=== PATIENT | female | born 1925 | race Caucasian/White ===

== ENCOUNTER 2016-09-22 21:07 | Inpatient (IN) | payer MEDICARE, BC ==
[~2016-09-22] VITALS: Ht 167.6 cm; Wt 72.6 kg
[~2016-09-22 21:07] MED LIST: CATAPRES0.1 MG PO; RESTORIL15 MG PO; SYNTHROID100 MCG PO; SYSTANE 0.3-0.4%5 ML EACH EYE; TYLENOL W/CODEI1 TAB PO; UNITHROID112 MCG; UNITHROID112 MCG PO; XALATAN 0.0052.5 ML EACH EYE; XARELTO15 MG PO; ZIAC 2.5/6.25 M1 TAB; ZIAC 2.5/6.25 M1 TAB PO
[2016-09-22 22:23] LABS: BASOPHILS 0.1 % (0-2); EOSINOPHILS 0.4 % (0-7); HEMATOCRIT 42.6 % (36.0-48.0); HEMOGLOBIN 13.8 g/dL (12-16); IMMATURE GRANULOCYTES 0.9 % (0-5); LYMPHOCYTES 11.7 % (15-50); MCH 29.6 pg (26.0-34.0); MCHC 32.4 g/dL (31.0-37.0); MCV 91.4 fL (80.0-100.0); MEAN PLATELET VOLUME 12.6 fL (7.4-10.4); MONOCYTES 16.5 % (2-11); NEUTROPHILS 70.4 % (40-80); RBC 4.66 10x6/uL (4.00-5.40); RDW 13.9 % (11.5-14.5); WBC 10.4 10x3/uL (4.8-10.8)
[2016-09-22 22:24] LABS: PLATELET COUNT 123 10x3/uL (130-400)
[2016-09-22 22:29] LABS: ALBUMIN 3.2 g/dL (3.4-5.0); ANION GAP 11.8 mmol/L (8-16); BILIRUBIN - TOTAL 0.52 mg/dL (0.2-1.3); CALCIUM 9.1 mg/dL (8.5-10.1); CARBON DIOXIDE 27.1 mmol/L (21.0-32.0); CREATININE - SERUM 2.1 mg/dL (0.6-1.3); POTASSIUM - SERUM 3.9 mmol/L (3.5-5.1); PROTEIN - SERUM 7.3 g/dL (6.4-8.2)
[2016-09-22 22:44] LABS: APPEARANCE CLOUDY (CLEAR); BACTERIA MANY /hpf (NONE SEEN); BILIRUBIN NEGATIVE (NEGATIVE); COLOR YELLOW (YELLOW); GLUCOSE NEGATIVE (NEGATIVE); KETONE NEGATIVE (NEGATIVE); LEUKOCYTE ESTERASE 2+ (NEGATIVE); MUCUS >1+ /lpf (NONE SEEN); NITRITE NEGATIVE (NEGATIVE); PROTEIN 1+ mg/dL (NEGATIVE); SPECIFIC GRAVITY 1.015 (1.005-1.020); UROBILINOGEN NORMAL (NORMAL); WHITE CELLS - URINE 25-50 /hpf (0-5)
[2016-09-22 22:45] LABS: AMORPHOUS SEDIMENT >1+ /lpf (NONE SEEN)
[2016-09-22 23:34] LABS: APTT 26.7 SECONDS (22.8-39.4); INR 1.03 (0.85-1.17); PROTIME 13.4 SECONDS (11.6-15.0)
[2016-09-23 03:48] VITALS: BP 164/66; BMI 25.8
[2016-09-23 09:28] VITALS: BP 128/59
[2016-09-23 11:02] LABS: BASOPHILS 0.1 % (0-2); EOSINOPHILS 1.3 % (0-7); HEMATOCRIT 41.7 % (36.0-48.0); HEMOGLOBIN 13.4 g/dL (12-16); IMMATURE GRANULOCYTES 0.8 % (0-5); LYMPHOCYTES 20.8 % (15-50); MCH 29.5 pg (26.0-34.0); MCHC 32.1 g/dL (31.0-37.0); MCV 91.9 fL (80.0-100.0); MEAN PLATELET VOLUME 12.4 fL (7.4-10.4); MONOCYTES 16.5 % (2-11); NEUTROPHILS 60.5 % (40-80); PLATELET COUNT 126 10x3/uL (130-400); RBC 4.54 10x6/uL (4.00-5.40); RDW 13.9 % (11.5-14.5); WBC 7.2 10x3/uL (4.8-10.8)
[2016-09-23 12:16] VITALS: BP 160/57
[2016-09-23 13:41] VITALS: Ht 167.6 cm; Wt 72.6 kg
[2016-09-23 16:01] VITALS: BP 152/50
[2016-09-23] MEDS ORDERED: ULTRAM50 MG PO (16:02)
[2016-09-23] MEDS ORDERED: COSOPT EYE DROPS5 ML EACH EYE (16:02)
[2016-09-23 19:00] VITALS: BP 153/54
--- NOTE | 2016-09-23 19:25 | NUR ---
RECIEVED SHIFT REPORT. PT IS LYING IN BED. ALERT AND ORIENTED AND ABLE TO VERBALIZE NEEDS. IV IS PATENT AND FLUIDS ARE RUNNING PER ORDER. PT IS AMBULATORY WITH ASSISTANCE BUT IS FEELING VERY WEAK AT THIS TIME. PT STATES PAIN IS 8/10. NO NEEDS ARE VERBALIZED AT THIS TIME. WILL CONTINUE TO MONITOR. SIDE RAILS ARE UP X 2. BED IS IN LOWEST POSITION. AUGUSTA MAT IS ON FOR SAFETY. CALL LIGHT IS WITHIN REACH.
--- NOTE | 2016-09-23 20:31 | NUR ---
SHIFT ASSESSMENT COMPLETED. PT C/O PAIN 10/31. ADMINISTERED PRESCRIBED PRN ULTRAM PER ORDER. NO FURTHER NEEDS AT THIS TIME. WILL MONITOR. SIDE RAILS X 2. BED LOW. AUGUSTA ON. CALL LIGHT IN REACH.
[2016-09-24 04:00] VITALS: BP 166/70
--- NOTE | 2016-09-24 07:10 | NUR ---
REPORT RECEIVED FROM FLOORING PROFESSIONAL NURSE. CALL LIGHT IN REACH.
[2016-09-24 07:14] LABS: BASOPHILS 0.2 % (0-2); EOSINOPHILS 2.2 % (0-7); HEMATOCRIT 39.7 % (36.0-48.0); HEMOGLOBIN 12.8 g/dL (12-16); IMMATURE GRANULOCYTES 1.6 % (0-5); LYMPHOCYTES 26.5 % (15-50); MCH 29.7 pg (26.0-34.0); MCHC 32.2 g/dL (31.0-37.0); MCV 92.1 fL (80.0-100.0); MEAN PLATELET VOLUME 13.1 fL (7.4-10.4); MONOCYTES 20.3 % (2-11); NEUTROPHILS 49.2 % (40-80); PLATELET COUNT 112 10x3/uL (130-400); RBC 4.31 10x6/uL (4.00-5.40); RDW 13.9 % (11.5-14.5); WBC 6.5 10x3/uL (4.8-10.8)
[2016-09-24 07:58] LABS: ALBUMIN 2.6 g/dL (3.4-5.0); ANION GAP 13.5 mmol/L (8-16); BILIRUBIN - TOTAL 0.4 mg/dL (0.2-1.3); CALCIUM 7.9 mg/dL (8.5-10.1); CARBON DIOXIDE 24.1 mmol/L (21.0-32.0); CREATININE - SERUM 2.2 mg/dL (0.6-1.3); POTASSIUM - SERUM 3.6 mmol/L (3.5-5.1); PROTEIN - SERUM 6.3 g/dL (6.4-8.2)
[2016-09-24 08:54] VITALS: BP 168/57
--- NOTE | 2016-09-24 09:10 | NUR ---
ASSESSMENT COMPLETED. OFFERED SCDs BUT REFUSED. PATIENT IS ON LOVENOX. AUGUSTA MAT ALARM IS ON. CALL LIGHT IN REACH. POA AT BEDSIDE. CALL LIGHT IN REACH. WILL CONTINUE WITH PLAN OF CARE.
--- NOTE | 2016-09-24 11:20 | NUR ---
PT RESTING IN BED WITH NO COMPLAINTS OF PAIN OR DISCOMFORT AT THIS TIME. ASSISTED PT ON TO BEDPAN AND PUT CALL LIGHT IN REACH. WILL CONTINUE TO MONITOR.
--- NOTE | 2016-09-24 11:23 | NUR ---
PT RESTING COMFORTABLY IN BED WITH COMPLAINTS OF PAIN OF A 4 ON A SCALE OF 1-10. STATES THAT PAIN IS BETTER THAN IT WAS EARLIER. BED IN LOW POSITION AND CALL LIGHT WITHIN REACH. WILL CONTINUE TO MONITOR.
--- NOTE | 2016-09-24 11:30 | NUR ---
AM MEDS ADMINISTERED PER ORDER. CALL LIGHT IN REACH. VISITORS AT BEDSIDE. EXPLAINED TO PATIENT AND FAMILY THAT A URINE SAMPLE IS NEEDED FOR TESTS. VERBALIZED UNDERSTANDING.
--- NOTE | 2016-09-24 12:51 | NUR ---
CAROLE IVPB AND LOVENOX SUBQ. CALL LIGHT IN REACH.
--- NOTE | 2016-09-24 14:06 | NUR ---
MIGUEL ÁNGEL COMPLETED. IV SL'D AT THIS TIME.
--- NOTE | 2016-09-24 14:31 | NUR ---
PLACED ON AND OFF BEDPAN. URINE SAMPLE COLLECTED AND SENT TO LAB.
--- NOTE | 2016-09-24 16:40 | NUR ---
HAS ASSISTED PATIENT ON AND OFF BEDPAN. DENIES NEEDS AT THIS TIME. CALL LIGHT IN REACH.
--- NOTE | 2016-09-24 18:09 | NUR ---
NO CHANGES IN INITIAL ASSESSMENT. STILL REFUSES SCDs. ALARM ON. CALL LIGHT IN REACH. WILL CONTINUE WITH PLAN OF CARE.
[2016-09-24 19:00] VITALS: BP 182/89
--- NOTE | 2016-09-24 19:30 | NUR ---
ASSESSMENT COMPLETE. S1S2. RR EQUAL NON LABORED. WEAKNESS NOTED TO EXTREMITIES X4. B/L KNEE BRUISING. RT SHOULDER AND RT ELBOW BRUISING. RIGHT FOREARM PIV; PATENT; SALINE LOCKED. MINIMAL ASSISTANCE WITH TURNING. PT PAIN 2/10; DENIES NEED FOR MEDICAITON.
--- NOTE | 2016-09-24 22:10 | NUR ---
PT ATTENTION SEEKING; USING CALL LIGHT SOON LEAVE THE ROOM. PT THREW BEDPAN INTO THE FLOOR; BEDPAN WAS FULL OF URINE. CLEANED PT ROOM; CLEANED PT; AND COMPLETE LINEN CHANGE. ASSISTED WITH BATH. DENTURES REMOVED AND PLACE IN CONTAINER ON BEDSIDE TABLE.
--- NOTE | 2016-09-24 23:45 | NUR ---
ASSISTED PT TO BEDPAN. UOP 100. PT CLEANED.
[2016-09-25] VITALS: BP 166/63
--- NOTE | 2016-09-25 00:45 | NUR ---
PT AMBULATED TO RESTROOM; GAIT STEADY; ASSISTED X1. USED CALL LIGHT WHEN FINISHED.
[2016-09-25 04:00] VITALS: BP 158/63
[2016-09-25 05:17] LABS: HEMATOCRIT 39.4 % (36.0-48.0); HEMOGLOBIN 12.9 g/dL (12-16); MCH 29.8 pg (26.0-34.0); MCHC 32.7 g/dL (31.0-37.0); MEAN PLATELET VOLUME 12.8 fL (7.4-10.4); PLATELET COUNT 120 10x3/uL (130-400); RBC 4.33 10x6/uL (4.00-5.40); RDW 13.7 % (11.5-14.5)
[2016-09-25 05:24] LABS: WBC 9.3 10x3/uL (4.8-10.8)
[2016-09-25 05:38] LABS: CARBON DIOXIDE 24.6 mmol/L (21.0-32.0); CREATININE - SERUM 1.9 mg/dL (0.6-1.3); POTASSIUM - SERUM 3.8 mmol/L (3.5-5.1)
[2016-09-25 05:39] LABS: ALBUMIN 2.5 g/dL (3.4-5.0); ANION GAP 13.2 mmol/L (8-16); BILIRUBIN - TOTAL 0.52 mg/dL (0.2-1.3); PROTEIN - SERUM 6.5 g/dL (6.4-8.2)
[2016-09-25 06:00] LABS: EOSINOPHILS 2 % (0-7); LYMPHOCYTES 19 % (15-50); MONOCYTES 10 % (2-11); NEUTROPHILS 69 % (40-80); PLATELET ESTIMATE DECREASED
--- NOTE | 2016-09-25 06:13 | NUR ---
PT ASSISTED WITH BEDPAN. 200ML UOP.
--- NOTE | 2016-09-25 07:15 | NUR ---
REPORT RECEIVED FROM [facility]CH MACHINE INSPECTOR NURSE. CALL LIGHT IN REACH.
--- NOTE | 2016-09-25 07:40 | NUR ---
PT ASLEEP IN BED WITH NO VISABLE SIGNS OF PAIN OR DISCOMFORT AT THIS TIME, BED IN LOW POSITION AND CALL LIGHT WITHIN REACH.
--- NOTE | 2016-09-25 07:43 | NUR ---
Patient Name: RAUL ROMANO Admission Status: ER Accout number: [id number] Admission Date: 09-23-2016 : 1927 Admission Diagnosis: Attending: JEANIE Current LOS: 2 Anticipated DC Date: 09-27-2016 Planned Disposition: Home Primary Insurance: MEDICARE A & B Discharge Planning Comments: CM MET WITH PATIENT REGARDING D/C NEEDS AND PLANS. PATIENT STATED SHE LIVES ALONE AND HAS A FRIEND (JEREMY) THAT CHECKS ON HER AND HELPS WHEN NEEDED. PATIENT STATED THERE ARE 2 STEPS W/RAILS TO ENTER HOME AND NO STAIRS INSIDE. PATIENT STATED SHE IS INDEPENDENT WITH HER CARE AND HAS A CANE AND WALKER IF NEEDED. PATIENTS PCP IS DR. ROBLEDO AND PHARMACY IS [facility] ON [address] PATIENT REFUSING HOME HEALTH AT THIS TIME. CM WILL CONTINUE TO FOLLOW PATIENT WITH D/C NEEDS AND PLANS. PCP DR[facility] ON [address] [phone] JEREMY CHAVEZ ([phone]) FRIEND Supervisor [employer]: Sindy Cates Is the patient Alert and Oriented? Yes 0 * How many steps to enter\exit or inside your home? 2 W/RAILS 0 * PCP DR. ROBLEDO 0 * [facility] ON [address] 0 * Preadmission Environment Home Alone 0 * ADLs Independent 0 * Equipment Cane Walker 0 * List name and contact numbers for known caregivers / representatives who currently or will assist patient after discharge: JEREMYGREER CHAVEZ (FRIEND) [phone] 0 * Community resources currently utilized None 0 * Additional services required to return to the preadmission environment? Yes 0 * Can the patient safely return to the preadmission environment? Yes 0 * Has this patient been hospitalized within the prior 30 days at any hospital? No 0 Grand Total: 0
--- NOTE | 2016-09-25 08:05 | NUR ---
ASSESSMENT COMPLETED. ASSISTED ON AND OFF BEDPAN. REFUSES SCDs. AUGUSTA ALARM ON. CALL LIGHT IN REACH. WILL CONTINUE WITH PLAN OF CARE.
[2016-09-25 09:00] VITALS: BP 148/58
--- NOTE | 2016-09-25 10:56 | NUR ---
IN CHAIR AT THIS TIME. AM MEDS ADMINISTERED. CALL LIGHT IN REACH.
--- NOTE | 2016-09-25 12:20 | NUR ---
DENIES NEEDS AT THIS TIME. CALL LIGHT IN REACH.
[2016-09-25 12:31] VITALS: BP 151/59
--- NOTE | 2016-09-25 14:26 | NUR ---
CAROLE IVPB AND LOVENOX SUBQ. FAMILY IN ROOM. CALL LIGHT IN REACH.
--- NOTE | 2016-09-25 16:27 | NUR ---
OT NOTE: PT COMPLETED BUE EXS FOR INCREASED STRENGTH. PT COMPLETED SIMPLE GROOMING WITH SET UP. THANK YOU, LISA DICKSON/Gavi
--- NOTE | 2016-09-25 16:27 | NUR ---
Rehab Prescreening Consult recieved and the chart was reviewed. This patient meets IRF criteria and will be accepted if she is agreeable to participate in the required therapy 3 hrs a day 5 days a week. Spoke to the CM re this. Geri Garcia RN Clinical Liaison, Rehab
[2016-09-25 17:11] VITALS: BP 149/52
--- NOTE | 2016-09-25 18:42 | NUR ---
NO CHANGES IN INITIAL ASSESSMENT. STILL REFUSES SCDs. CALL LIGHT IN REACH. ALARM ON. WILL CONTINUE WITH PLAN OF CARE.
--- NOTE | 2016-09-25 19:25 | NUR ---
RECIEVED SHIFT REPORT. PT IS LYING IN BED. ALERT AND ORIENTED AND ABLE TO VERBALIZE NEEDS. IV IS PATENT AND SALINE LOC AT THIS TIME. PT IS AMBULATORY WITH ASSISTANCE. PT STATES PAIN IS 8/10. NO NEEDS ARE VERBALIZED AT THIS TIME. WILL CONTINUE TO MONITOR. SIDE RAILS ARE UP X 2. BED IS IN LOWEST POSITION. AUGUSTA MAT IS ON FOR SAFETY. CALL LIGHT IS WITHIN REACH.
[2016-09-25 20:00] VITALS: BP 173/65
--- NOTE | 2016-09-25 21:09 | NUR ---
SHIFT ASSESSMENT COMPLETED. EYE DROPS ADMINISTERED PER ORDER. NO NEEDS ARE VOICED. WILL MONITOR. SIDE RAILS X 2. BED LOW. AUGUSTA MAT ON. CALL LIGHT IN REACH.
[2016-09-26] VITALS: BP 168/68
[2016-09-26 04:00] VITALS: BP 165/66
[2016-09-26 05:35] LABS: BASOPHILS 0.1 % (0-2); EOSINOPHILS 1.9 % (0-7); HEMATOCRIT 38.3 % (36.0-48.0); HEMOGLOBIN 12.3 g/dL (12-16); IMMATURE GRANULOCYTES 4.8 % (0-5); LYMPHOCYTES 21.5 % (15-50); MCH 29.8 pg (26.0-34.0); MCHC 32.1 g/dL (31.0-37.0); MCV 92.7 fL (80.0-100.0); MEAN PLATELET VOLUME 12.7 fL (7.4-10.4); MONOCYTES 19.9 % (2-11); NEUTROPHILS 51.8 % (40-80); PLATELET COUNT 114 10x3/uL (130-400); RBC 4.13 10x6/uL (4.00-5.40); RDW 13.8 % (11.5-14.5)
[2016-09-26 05:39] LABS: WBC 6.9 10x3/uL (4.8-10.8)
[2016-09-26 05:56] LABS: ALBUMIN 2.3 g/dL (3.4-5.0); ANION GAP 12.5 mmol/L (8-16); BILIRUBIN - TOTAL 0.3 mg/dL (0.2-1.3); CALCIUM 7.8 mg/dL (8.5-10.1); CARBON DIOXIDE 24.8 mmol/L (21.0-32.0); CREATININE - SERUM 1.9 mg/dL (0.6-1.3); POTASSIUM - SERUM 4.3 mmol/L (3.5-5.1); PROTEIN - SERUM 6.2 g/dL (6.4-8.2)
--- NOTE | 2016-09-26 07:35 | NUR ---
PT AOX2 RESP EVEN AND NONLABORED PT DENIES NEEDS AT THIS TIME IV TO RIGHT FOREARM PATENT AND INTACT AT THIS TIME. SRX2 BED AT LOWEST SETTING CALL LIGHT WITHIN REACH WILL CONTINUE TO MONITOR
[2016-09-26 09:27] VITALS: BP 180/50
--- NOTE | 2016-09-26 09:57 | NUR ---
CM REASSESSMENT NOTE: PATIENT IS DISCHARGING TO IP REHAB TODAY. IMM SIGNED. JEREMY CHAVEZ HER NEIGHBOR (LIKE A SON) NUMBER IS [phone] IF NEEDED.
[2016-09-26 13:20] VITALS: BP 156/55
--- NOTE | 2016-09-26 16:02 | NUR ---
IV TO RIGHT FOREARM DISCONTINUED WITH CATHETER INTACT AT THIS TIME. PT HAD LARGE BOWEL MOVEMENT IN BEDPAN AT THIS TIME.
--- NOTE | 2016-09-26 16:45 | NUR ---
PT TAKEN VIA WHEELCHAIR VIA SNAPPER ON AT THIS TIME TO INPATIENT REHAB AT THIS FACILITY
--- NOTE | 2016-09-26 16:55 | NUR ---
OT NOTE: PT COMPLETED BUE STRENGTHENING EXS FOR INCREASED I WITH TRANSFERS. PT COMPLETED BED MOB WITH MIN A. PT COMPLETED SITTING BALANCE WITH CGA. PT COMPLETED SIMPLE GROOMING TASK WITH SET UP. THANK YOU, LISA DICKSON/Gavi
== END 2016-09-26 16:45 | DRG 690 ==
LOC: D.ER 21:07 → D.MS 09-23 01:45 → OBSVTIME 09-23 01:45 → D.MS 09-23 01:45
PROVIDERS: Emergency Medicine; Physician Assistant Medical; ADMIT Family Medicine
DX: N39.0 Urinary tract infection, site not specified (principal); N18.4 Chronic kidney disease, stage 4 (severe); R53.1 Weakness; G72.89 Other specified myopathies; S70.12XA Contusion of left thigh, initial encounter; W18.30XA Fall on same level, unspecified, initial encounter; Y92.000 Kitchen of unspecified non-institutional (private) residence as the place of occurrence of the external cause; I12.9 Hypertensive chronic kidney disease with stage 1 through stage 4 chronic kidney disease, or unspecified chronic kidney disease

== ENCOUNTER 2016-09-26 15:46 | Inpatient (IN) | payer MEDICARE, BC ==
[~2016-09-26] VITALS: Ht 167.6 cm; Wt 75.8 kg
[~2016-09-26 15:46] MED LIST changes: +COSOPT EYE DROPS5 ML EACH EYE; +ULTRAM50 MG PO
--- NOTE | 2016-09-26 16:45 | NUR ---
RECIEVED ON REHAB TO ROOM 1113A,ORIENTED TO SURROUNDINGS.CL IN REACH.PLACED ON ALARM.CL IN REACH.
--- NOTE | 2016-09-26 19:45 | NUR ---
PT IN ROOM, ASSISTED TO BATHROOM PER TECH, RESPIRATIONS REGULAR AND UNLABORED. PT EXPRESSING CONCERN AND CONSPIRACY RE ROOMMATE.
--- NOTE | 2016-09-26 20:00 | NUR ---
PT REFUSED TO PARTICIPATE IN ADMISSION SIGNING OF PAPERS OR ADMISSION PROCESS. WILL DEFER TO A LITTLE LATER.
[2016-09-26 20:49] VITALS: BP 160/74
--- NOTE | 2016-09-26 22:35 | NUR ---
PT STATES SHE CAN'T SLEEP WITH LIGHT ON REFERRING TO UNIT BOWSER LIGHT, MOVED BED SO LIGHT WASN'T SHINING IN HER EYES. PT STATES SHE JUST WANTS TO GO TO SLEEP, HOWEVER, HOW CAN SHE WITH SUCH A LIGHT ON. PT IS VERBALLY AGITATED. PT PERSEVERATES REGARDING ROOMMATE AND BELIEVES SHE IS TALKING AND ENJOYING HERSELF SEXUALLY. NEITHER PT NOR SITTER ARE TALKING OR MAKING ANY NOISE. PT NOT UP TO REASONING, AGITATION INCREASES WITH ATTEMPT TO REORIENT, DEESCALATION OCCURED BY DIVERSION OF SUBJECT OF DISCUSSION.
--- NOTE | 2016-09-27 00:01 | NUR ---
PT RESTING QUIETLY, RESPIRATIONS REGULAR AND UNLABORED, NO S/S OF ACUTE DISTRESS.
[2016-09-27 01:22] VITALS: BP 133/57; BMI 27.0
--- NOTE | 2016-09-27 04:44 | NUR ---
PT RESTING QUIETLY, NO S/S OF ACUTE DISTRESS, EYES CLOSED, RESPIRATIONS REGULAR AND UNLABORED.
[2016-09-27 06:39] LABS: BASOPHILS 0.1 % (0-2); HEMATOCRIT 38.9 % (36.0-48.0); HEMOGLOBIN 12.4 g/dL (12-16); LYMPHOCYTES 23.1 % (15-50); MCH 29.4 pg (26.0-34.0); MCHC 31.9 g/dL (31.0-37.0); MCV 92.2 fL (80.0-100.0); MEAN PLATELET VOLUME 12.8 fL (7.4-10.4); MONOCYTES 17.5 % (2-11); NEUTROPHILS 51.3 % (40-80); RBC 4.22 10x6/uL (4.00-5.40); RDW 13.9 % (11.5-14.5); WBC 6.8 10x3/uL (4.8-10.8)
[2016-09-27 06:51] LABS: PLATELET COUNT 141 10x3/uL (130-400)
[2016-09-27 07:05] LABS: ALBUMIN 2.6 g/dL (3.4-5.0); ANION GAP 13.1 mmol/L (8-16); BILIRUBIN - TOTAL 0.21 mg/dL (0.2-1.3); CARBON DIOXIDE 25.1 mmol/L (21.0-32.0); CREATININE - SERUM 2.2 mg/dL (0.6-1.3); POTASSIUM - SERUM 4.2 mmol/L (3.5-5.1); PROTEIN - SERUM 6.3 g/dL (6.4-8.2)
[2016-09-27 08:52] VITALS: BP 183/73
[2016-09-27 12:54] VITALS: Ht 167.6 cm; Wt 75.8 kg
[2016-09-27 19:06] VITALS: BP 148/62
--- NOTE | 2016-09-27 21:40 | NUR ---
ASSISTED PT TO BATHROOM AND BACK TO BED.
--- NOTE | 2016-09-28 04:20 | NUR ---
PT RESTING QUIETLY, RESPIRATIONS REGULAR AND UNLABORED, NO S/S OR ACUTE DISTRESS.
--- NOTE | 2016-09-28 04:46 | NUR ---
REST QUIETLY IN BED WITH EYE CLOSE, BED LOW, CALL LIGHT WITHIN REACH.
--- NOTE | 2016-09-28 07:46 | NUR ---
RESTING QUIETLY IN BED. EYES CLOSED. CALL LIGHT IN REACH
--- NOTE | 2016-09-28 08:15 | NUR ---
PT RESTING IN BED WITH EYES OPEN CALL LIGHT IN REACH CALL LIGHT IN REACH NO PROBLEMS WILL MONITER
[2016-09-28 09:10] VITALS: BP 152/65
--- NOTE | 2016-09-28 17:54 | NUR ---
PT RESTING IN WHEELCHAIR CALL LIGHT IN REACH NO PROBLEMS WILL MONITER
--- NOTE | 2016-09-28 19:35 | NUR ---
PT ASSISTED TO BR. PT BACK IN BED AND DENIES FURTHER NEEDS. WCTM. BED LOW. C YESSY [place].
--- NOTE | 2016-09-28 21:17 | NUR ---
PT HS MEDS ADMINISTERED. PT REQ AND REC'D PRN PAIN MEDICATION. BED LOW. C YESSY [place].
--- NOTE | 2016-09-29 01:50 | NUR ---
PT RESTING, EYES CLOSED. BED LOW. C YESSY REACH.
--- NOTE | 2016-09-29 04:13 | NUR ---
PT ASSISTED TO BR. PT BACK IN BED AND DENIES FURTHER NEEDS. WCTM.
[2016-09-29 08:00] VITALS: BP 174/71
--- NOTE | 2016-09-29 08:20 | NUR ---
SITTING UP IN BED EATING BREAKFAST. CALL LIGHT IN REACH.
--- NOTE | 2016-09-29 10:24 | NUR ---
PATIENT ALERT/ORIENT WITH SOME CONFUSSION/FORGETFULNESS NOTED. USING CALL LIGHT FOR NEEDS. BED ALARM ON. USING CALL LIGHT FOR NEEDS.
--- NOTE | 2016-09-29 14:58 | NUR ---
PATIENT USING CALL LIGTH TO GO TO THE BATHROOM. MOD ASST FROM BED TO WHEELCHAIR. STANDBY ASST IN BATHROOM WITH USING GRAB BAR FROM WHEELCHAIR ONTO TOILET. PATIENT NEEDED HELP PULLING UP PANTS.
--- NOTE | 2016-09-29 17:18 | NUR ---
PATIENTS SON VISITING IN ROOM. PATIENT SITTING UP IN WHEELCHAIR AT BEDSIDE TO EAT SUPPER.
--- NOTE | 2016-09-29 19:20 | NUR ---
RESTING IN BED WITH EYES OPEN AND TV ON . PLEASANT AND COOPERATIVE. ABLE TO VOICE NEEDS. ALERT AND ORIENTED TIMES FOUR AT THIS TIME . REEDUCATED TO CALL LIGHT AND USE OF. PARTIAL PLATE SOAKING IN HAND BINDERY ASSEMBLY WORKER ATTHIS TIME. DENIES ANY PAIN.
[2016-09-29 22:05] VITALS: BP 95/62
[2016-09-29 23:48] VITALS: BP 113/53
[2016-09-30 00:18] VITALS: BP 113/53
--- NOTE | 2016-09-30 01:32 | NUR ---
RETING IN BED WITH EYES CLOSED. NO S/S OF DISTRESS OBSERVED. CALL LIGHT AND OVERBED TABLE IN REACH.
--- NOTE | 2016-09-30 02:18 | NUR ---
RESTING IN BED WITH EYES CLOSED. NO S/S OF DISTRESS OBSERVED. ALARMS ON AND FUNCTIONING PROPERLY. CALL LIGHT AND OVERBED TABLE IN REACH.
--- NOTE | 2016-09-30 04:54 | NUR ---
RESTING IN BED WITH EYES CLOSEDS. NO S/S OF DISTRESS OBSERVED. CALL LIGHT IN REACH.
[2016-09-30 06:24] LABS: BASOPHILS 0.3 % (0-2); EOSINOPHILS 2.9 % (0-7); HEMATOCRIT 35.6 % (36.0-48.0); HEMOGLOBIN 11.6 g/dL (12-16); IMMATURE GRANULOCYTES 5.9 % (0-5); LYMPHOCYTES 21.1 % (15-50); MCH 30.5 pg (26.0-34.0); MCHC 32.6 g/dL (31.0-37.0); MCV 93.7 fL (80.0-100.0); MEAN PLATELET VOLUME 12.1 fL (7.4-10.4); MONOCYTES 20.9 % (2-11); NEUTROPHILS 48.9 % (40-80); PLATELET COUNT 160 10x3/uL (130-400); RDW 14.1 % (11.5-14.5); WBC 6.1 10x3/uL (4.8-10.8)
[2016-09-30 06:36] LABS: ANION GAP 12.3 mmol/L (8-16); CALCIUM 8.3 mg/dL (8.5-10.1); CARBON DIOXIDE 25.3 mmol/L (21.0-32.0); CREATININE - SERUM 1.9 mg/dL (0.6-1.3); POTASSIUM - SERUM 4.6 mmol/L (3.5-5.1)
--- NOTE | 2016-09-30 08:15 | NUR ---
PT RESTING IN BED WITH EYES OPEN CALL LIGHT IN REACH WILL MONITER
[2016-09-30 08:38] VITALS: BP 95/62
--- NOTE | 2016-09-30 17:51 | NUR ---
PT UP IN WHEELCHAIR IN ROOM EATING SUPPER TOLERATING WELL WILL MONITER
--- NOTE | 2016-09-30 19:05 | NUR ---
IN BED, AWAKE. ASSISTED PATIENT UP TO BR TO URINATE.
--- NOTE | 2016-09-30 21:15 | NUR ---
SET OFF BED ALARMS ATTEMPTING OOB TO BR. ASSISTED HER UP TO BR TO URINATE AND BACK TO BED. PATIENT PUT DENTURES IN CUP TO SOAK AT SINK.
[2016-09-30 22:05] VITALS: BP 95/62
--- NOTE | 2016-09-30 22:05 | NUR ---
ASSESSMENT AND HS MEDS COMPLETE. DENIES NEEDS.
--- NOTE | 2016-10-01 00:10 | NUR ---
IN BED, EYES CLOSED. NO DISTRESS EVIDENT.
--- NOTE | 2016-10-01 02:20 | NUR ---
STIRRED A BIT WHILE I ROUNDED, HOWEVER CURRENTLY IS RESTING ON RIGHT SIDE WITH EYES CLOSED AFTER ASSIST UP TO BR AROUND 0120 HRS.
--- NOTE | 2016-10-01 06:25 | NUR ---
Nutrition Monitoring and Eval: Pt is eating 96% meal avg on a regular diet. +BM. Meds and labs noted. Pt continues at low nutritional risk. RD following.
--- NOTE | 2016-10-01 07:45 | NUR ---
UP TO WC TO BATHROOM WIHT MIN ASSIST.SET-UP FOR BREAKFAST MEAL.CL IN REACH.
--- NOTE | 2016-10-01 08:15 | NUR ---
PT RESTING IN BED WITH EYES OPEN CALL LIGHT IN REACH NO PROBLEMS WILL MONITER
[2016-10-01 09:25] VITALS: BP 174/79
--- NOTE | 2016-10-01 18:21 | NUR ---
PT RESTING IN BED WITH EYES OPEN CALL LIGHT IN REACH WILL MONITER
[2016-10-01 19:05] VITALS: BP 105/63
--- NOTE | 2016-10-01 19:25 | NUR ---
UP IN SHOWER WITH DEVELOPMENT DIRECTOR ASSIST. WHILE AT PASSING NURSING STATION AFTER OBTAINING ADDITIONAL LINENS FOR PATIENT, DEVELOPMENT DIRECTOR REPORTS PATIENT HAS VERBALLY ABUSED HER 3 DIFFERENT TIMES SINCE SHE WAS ASSISTED UP, CALLING HER, "STUPID", "A PIECE OF SH", ETC. PATIENT HAS A HISTORY OF FALLS AND DEVELOPMENT DIRECTOR WAS ONLY ASKING HER TO SIT ON SHOWER BENCH WHILE WASHING MOT OF HER BODY, AND ONLY STANDING WHEN DEVELOPMENT DIRECTOR WAS PRESENT, TO WASH HER PRIVATE AREAS.
--- NOTE | 2016-10-01 21:45 | NUR ---
ASSESSMENT AND HS MEDS COMPLETE. PATIENT WAS RECENTLY ASSISTED UP TO COMMODE AFTER SETTING OFF BED ALARM ATTEMPTING OOB BETWEEN HER RIGHT SIDERAILS. GAVE PATIENT ULTRAM 50MG PO FOR PAIN IN BRUISED FOREARMS AND SORE NECK OF LEVEL 6/10. SR UP X3. INTERNAL BED ALARM AND AUGUSTA BED ALARM ARE ARMED. SR UP X3 (LEFT FOOTRAIL DOWN). WATER AND CALL LIGHT ARE IN REACH. REMINDED HER TO CALL FOR ASSIST AND NOT TO ATTEMPT OOB ALONE.
--- NOTE | 2016-10-01 22:05 | NUR ---
RESTING IN BED, EYES CLOSED.
--- NOTE | 2016-10-02 00:05 | NUR ---
RESTING IN BED, EYES CLOSED.
--- NOTE | 2016-10-02 01:50 | NUR ---
CALLED FOR ASSIST UP TO BR TO URINATE AND THEN BACK TO BED. DENIES FURTHER NEEDS.
--- NOTE | 2016-10-02 04:45 | NUR ---
IN BED, EYES CLOSED. RESPIRATIONS UNLABORED.
[2016-10-02 05:28] LABS: BASOPHILS 0.2 % (0-2); EOSINOPHILS 2.6 % (0-7); HEMATOCRIT 35.8 % (36.0-48.0); HEMOGLOBIN 11.4 g/dL (12-16); LYMPHOCYTES 20.3 % (15-50); MCH 29.3 pg (26.0-34.0); MCHC 31.8 g/dL (31.0-37.0); MONOCYTES 18.8 % (2-11); NEUTROPHILS 51.1 % (40-80); PLATELET COUNT 183 10x3/uL (130-400); RBC 3.89 10x6/uL (4.00-5.40); RDW 14.1 % (11.5-14.5); WBC 6.6 10x3/uL (4.8-10.8)
[2016-10-02 05:43] LABS: ANION GAP 13.1 mmol/L (8-16); CALCIUM 8.5 mg/dL (8.5-10.1); CARBON DIOXIDE 23.7 mmol/L (21.0-32.0); CREATININE - SERUM 1.8 mg/dL (0.6-1.3); POTASSIUM - SERUM 4.8 mmol/L (3.5-5.1)
--- NOTE | 2016-10-02 06:05 | NUR ---
RESTING QUIETLY IN BED, EYES CLOSED AFTER ASSIST UP TO BR TO URINATE AND BACK TO BED AROUND 0540.
[2016-10-02 08:00] VITALS: BP 116/63
--- NOTE | 2016-10-02 08:00 | NUR ---
PATIENT LYING IN BED. CALL LIGHT WITHIN REACH. PATIENT IS CONFUSED. BED ALARM ON AND AUGUSTA ALARM ON WHILE PATIENT IN BED. AUGUSTA ALARM WHEN PATIENT IS IN WHEELCHAIR. PATIENT VOICES NO NEEDS AT THIS TIME.
--- NOTE | 2016-10-02 08:00 | NUR ---
DENIES NEEDS.CL IN REACH
--- NOTE | 2016-10-02 10:07 | NUR ---
PATIENT IN REHAB ROOM. WORKING WITH OCCUPATYIONAL THERAPIST. DENIES ANY PAIN/DISC AT THIS TIME.
--- NOTE | 2016-10-02 13:29 | NUR ---
SPEECH THERAPIST IN PATIENTS ROOM. WORKING WITH CARONIST
--- NOTE | 2016-10-02 16:44 | NUR ---
PATIENT ADMITTED TO REHAB FROM ACUTE FLOOR. DR. ROBLEDO IS PCP. [facility] [address] IS [facility] OF CHOICE. SHE BORGES A CANE AND WALKER AT HOME AND HAS NEVER USED HOME HEALTH. WILL CONTINUE TO FOLLOW WITH PATIENT. TENATIVE DISCHARGE DATE IS 10/09/16
--- NOTE | 2016-10-02 17:24 | NUR ---
PATIENT RESTING IN BED AFTER THERAPY. SON IN ROOM VISITING.
[2016-10-02 19:00] VITALS: BP 110/56
--- NOTE | 2016-10-02 19:47 | NUR ---
RESTING IN BED WITH TV ON. PLEASANT AND COOPERATIVE. ABLE TO VOICE NEEDS. DENIES ANY PAIN.
--- NOTE | 2016-10-02 23:17 | NUR ---
RESTING IN BED WITH EYES CLOSED. NO SIGNS OR SYMPRTOMS OF DISTRESS OBSERVEED, BED ALARMS IN PLACE AND FUNCTIONAL. CALL LIGHT AND OVERBED TABLE IN REACH.
[2016-10-03 02:07] VITALS: BP 110/86
--- NOTE | 2016-10-03 03:01 | NUR ---
RESTING IN BED WITH EYES CLOSED. ALARMS IN PLACE AND FUNCTIONAL CALL LIGHT AND OVERBED TABLE IN REACH.
[2016-10-03 08:42] VITALS: BP 104/50
--- NOTE | 2016-10-03 09:53 | NUR ---
PT RESTURNING FROM THERAPY. PT AM MEDS ADMINISTERED. PT DENIES NEEDS. WCTM.
--- NOTE | 2016-10-03 17:09 | NUR ---
PT RESTING IN BED, DENIES NEEDS. WCTM.
[2016-10-03 18:59] VITALS: BP 108/62
--- NOTE | 2016-10-03 19:27 | NUR ---
LYING IN BED WITH EYES OPEN AND VISIORS AT BEDSIDE. PLEASANT AND COOOPERATIVE. ORIENTED TIMES 4. ABLE TO VOICE NEEDS.NO COMPLAINTS AT THIS TIME.
--- NOTE | 2016-10-03 22:39 | NUR ---
RESTING IN BED WITH EYES CLOSED AT THIS TIME. COMPLAINED OF NECK PAIN AT 10 EARLIER. REQUESTED MEDICATION. ULTRAM GIVEN PER ORDERS. REASSESSED AND PAIN AT 6. THEN ASSISTED TO TOILET AND ASKED WHY HER PAIN TOTALLY WENT AWAY WHEN SHE WETS. WHEN LEAVING ROOM DENIED ANY PAIN AT ALL. CALL LIGHT AND OVERBED TABLE IN REACH. BED/CHAIR ALARM IN PLACE AND FUNCTIONAL.
[2016-10-03 23:38] VITALS: BP 108/62
--- NOTE | 2016-10-04 03:55 | NUR ---
RESTING IN BED WITH EYES CLOSED. NO S/S OF DISTRESS OBSERVED. SIDE RAILS UP X2. BED ALRM IN PLACE AND FUNCTIONAL. USES CALL LIGHT FOR ASSIST TO TOILET. CALL LIGHT AND OVERBED TABLE IN REACH.
[2016-10-04 08:04] VITALS: BP 159/64
--- NOTE | 2016-10-04 08:31 | NUR ---
PT AM MEDS ADMINISTERED. PT DENIES NEEDS. WCTM.
--- NOTE | 2016-10-04 12:15 | NUR ---
PT EATING LUNCH, DENIES NEEDS. WCTM.
--- NOTE | 2016-10-04 15:17 | NUR ---
PT ASSISTED TO BR. PT BACK IN BED. BED LOW. CL IIN REACH.
--- NOTE | 2016-10-04 16:34 | NUR ---
PT RESTING IN BED WATCHING TV, DENEIS NEEDS. BED LOW. CL IN REACH.
--- NOTE | 2016-10-04 19:30 | NUR ---
IN BED, HOB UP 45 DEGREES. DENIES NEEDS.
--- NOTE | 2016-10-04 19:30 | NUR ---
IN BED ON SPECIALTY AIR BED. HOB UP 30 DEGREES. EMPTIED 200ML FROM BEDSIDE URINAL. DENIES CURRENT NEEDS.
--- NOTE | 2016-10-04 20:25 | NUR ---
ASSISTED PATIENT UP TO BR TO URINATE, AND THEN BACK TO BED. DENIES FURTHER NEEDS.
[2016-10-04 22:00] VITALS: BP 153/61
--- NOTE | 2016-10-04 22:00 | NUR ---
ASSESSMENT AND HS MEDS COMPLETE. DENIES CURRENT NEEDS.
--- NOTE | 2016-10-05 00:10 | NUR ---
RESTING QUIETLY IN BED, EYES CLOSED. WAS ASSISTED UP TO BR AND BACK TO BED ABOUT 2300.
--- NOTE | 2016-10-05 02:00 | NUR ---
SET OFF BOTH BED ALARMS ATTEMPTING OOB ON LEFT SIDE OF BED. ASSISTED HER UP TO BR TO URINATE, AND THEN BACK TO BED VIA W/C. RESET BED ALARMS. REMINDED HER THAT SHE IS TO CALL FOR ASSIST AT ALL TIMES TO PROTECT HER FROM ANOTHER FALL.
--- NOTE | 2016-10-05 04:10 | NUR ---
RESTING QUIETLY IN BED, EYES CLOSED. RESPIRING QUIETLY.
--- NOTE | 2016-10-05 05:35 | NUR ---
ASSISTED PATIENT UP TO BR AND BACK TO BED AFTER TOILETING. ALARMS RESET. SR UP X3 WITH WATER AND CALL LIGHT IN REACH.
--- NOTE | 2016-10-05 07:30 | NUR ---
PT RANG CALL LIGHT TO REQUEST ASSIST TO THE BATHROOM. ASSISTED TO THE BATHROOM WITH SBA FOR ALL TASKS, EXCEPT MOD ASSIST TO GET LEGS BACK INTO BED AFTERWARDS. VSS. PT STATES SHE IS HAVING A LOT OF NECK PAIN TODAY, BUT SHE ALREADY HAD PILLS FOR IT, SO THINKS IT WILL GET BETTER. SR'S ARE UP X 3 IN BED. CALL LIGHT AND BEDSIDE TABLE ARE WITHIN EASY REACH. BED AND BOX ALARMS ARE ON AND INTACT.
[2016-10-05 08:00] VITALS: BP 172/71
--- NOTE | 2016-10-05 09:25 | NUR ---
PT ASSISTED TO THE BATHROOM WITH SBA. NO FURTHER NEEDS VOICED.
--- NOTE | 2016-10-05 10:13 | NUR ---
RESTING QUIETLY IN BED.CL IN REACH.
--- NOTE | 2016-10-05 13:34 | NUR ---
PT ASSISTED TO THE BATHROOM AT THIS TIME. NO ACUTE DISTRESS NOTED.
--- NOTE | 2016-10-05 17:13 | NUR ---
PT IS RESTING IN BED AWAITING SUPPER. NO NEEDS VOICED.
--- NOTE | 2016-10-05 19:30 | NUR ---
ASSISTED PATIENT UP TO BR COMMODE. PATIENT HAD A MEDIUM, SOFT FORMED BM WELL URINATING. RETURNED HER TO BED VIA W/C. RESET BOTH BED ALARMS. SR UP X3. WATER AND CALL LIGHT IN REACH. DENIES FURTHER NEEDS.
[2016-10-05 21:15] VITALS: BP 163/66
--- NOTE | 2016-10-05 21:15 | NUR ---
ASSESSMENT AND HS MEDS COMPLETE. GAVE PATIENT ULTRAM 50MG PO FOR POSTERIOR NECK PAIN OF LEVEL 7/10. PATIENT A BIT IRRITABLE AND AGRUMENTATIVE TONIGHT DUE TO IMPAIRED MEMORY AND INABILITY TO COMPLY WITH SAFETY REQUIREMENTS OF THE UNIT/HOSPITAL. REMINDED HER THAT SHE IS HERE DUE TO FALLING AT HOME WITH A CLOSED HEAD INJURY AND BRUISING, AND THAT SHE IS NOT YET SAFE TO AMBULATE OR TRANSFER WITHOUT A STAFF MEMBER PRESENT.
--- NOTE | 2016-10-05 22:20 | NUR ---
ASSISTED PATIENT UP TO BR COMMODE. TOLD HER TO USE CALL LIGHT WHEN FINISHED. HEARD HER FLUSHING COMMODE. DID NOT USE BR CALL LIGHT FOR ASSIST AND I FOUND HER HOLDING ON TO HER WALL-MOUNTED HANDRAIL AND REACHING ACROSS THE COMMODE TRYING TO TURN HER W/C AROUND WITH THE OTHER HAND. BECAME ARGUMENTATIVE WHEN I REMINDED HER THIS WAS A RISKY ATTEMPT SHE COULD HAVE EASILY FALLEN. ALSO REINFORCED THAT THIS TYPE OF DECISION MAKING ON HER PART IS WHY SHE NEEDS TO BE SUPERVISED IN TRANSFERS.
--- NOTE | 2016-10-05 23:45 | NUR ---
IN BED, EYES CLOSED. HOB UP 20 DEGREES. NO DISTRESS NOTED.
--- NOTE | 2016-10-06 02:35 | NUR ---
RESTING IN BED, EYES CLOSED. NO DISTRESS NOTED.
--- NOTE | 2016-10-06 04:30 | NUR ---
IN BED, EYES CLOSED. RESPIRING QUIETLY SINCE ASSIST UP TO BR @ 0315.
--- NOTE | 2016-10-06 06:08 | NUR ---
DECLINES ASSIST UP TO BR. TOOK SCHEDULED SYNTHROID PO.
--- NOTE | 2016-10-06 07:26 | NUR ---
PT IS RESTING IN BED WITH EYES OPEN. ALERT TO SELF AND PLACE. CONFUSED TO TIME AND SITUATION. VSS. NO NEEDS VOICED. PT STATED: "ARE YOU THE BRIEF MAN" I INFORMED HER I WAS THE NURSE TODAY, AND SHE VOICED UNDERSTANDING. SR'S ARE UP X 3 IN BED. CALL LIGHT AND BEDSIDE TABLE ARE WITHIN EASY REACH.
--- NOTE | 2016-10-06 09:29 | NUR ---
PT ASSISTED TO THE BATHROOM WITH SBA. VOIDED WITHOUT DIFFICULTY. NO DISTRESS NOTED.
[2016-10-06 09:36] VITALS: BP 113/69
--- NOTE | 2016-10-06 09:56 | NUR ---
SITTING O SIDE OF BED.CL IN REACH.
--- NOTE | 2016-10-06 09:57 | NUR ---
SLEEPING RESPS EASY.CL IN REACH
--- NOTE | 2016-10-06 12:11 | NUR ---
PT IS SITTING UP IN WC EATING LUNCH. NO DISTRESS NOTED.
--- NOTE | 2016-10-06 15:37 | NUR ---
RESTING QUIETLY IN BED WITH EYES CLOSED. NO ACUTE DISTRESS NOTED.
--- NOTE | 2016-10-06 15:49 | NUR ---
PT NOTED UP IN BATHROOM WITH BED ALARM GOING OFF. PT INFORMED NOT TO GET UP BY HERSELF FOR SAFETY REASONS, SHE REPLIED, OH SHUT UP AND GET OUT OF HERE OR IS WILL GRAB YOUR BALLS AND WRAP THEM AROUND YOUR NECK. I INSISTED THAT I HELP PT AMBULATE BACK TO BED. PT ASSISTED TO BED. I OFFERED PT A SHOWER, BUT SHE REFUSED IT. I WILL TRY AGAIN WHEN PT CALMS DOWN.
--- NOTE | 2016-10-06 17:38 | NUR ---
PT SITTING IN WC IN HER ROOM FEEDING SELF SUPPER. NO ACUTE DISTRESS NOTED. VISITOR AT BEDSIDE.
[2016-10-06 19:26] VITALS: BP 139/61
--- NOTE | 2016-10-06 19:40 | NUR ---
PT WATCHING TV IN ROOM, PT RESPIRATIONS REGULAR AND UNLABORED, NO S/S OF ACUTE DISTRESS. PT FRIENDLY AND CONVERSIVE.
--- NOTE | 2016-10-07 00:15 | NUR ---
ASSISTED PT TO BATHROOM VIA W/C. PT IS CONVERSIVE, PT RESPIRATIONS REGULAR AND UNLABORED. PT C/O OCCASIONAL COUGH.
--- NOTE | 2016-10-07 04:31 | NUR ---
PT RESTING QUIETLY. EYES CLOSED RESPIRATIONS REGULAR AND UNLABORED.
[2016-10-07 06:47] LABS: BASOPHILS 0.3 % (0-2); EOSINOPHILS 2.4 % (0-7); HEMATOCRIT 35.5 % (36.0-48.0); HEMOGLOBIN 11.3 g/dL (12-16); IMMATURE GRANULOCYTES 4.6 % (0-5); LYMPHOCYTES 19.6 % (15-50); MCH 29.1 pg (26.0-34.0); MCHC 31.8 g/dL (31.0-37.0); MCV 91.5 fL (80.0-100.0); MEAN PLATELET VOLUME 11.2 fL (7.4-10.4); MONOCYTES 17.6 % (2-11); NEUTROPHILS 55.5 % (40-80); PLATELET COUNT 185 10x3/uL (130-400); RBC 3.88 10x6/uL (4.00-5.40); RDW 14.2 % (11.5-14.5)
[2016-10-07 07:16] LABS: ANION GAP 15.5 mmol/L (8-16); CALCIUM 8.1 mg/dL (8.5-10.1); CARBON DIOXIDE 23.2 mmol/L (21.0-32.0); CREATININE - SERUM 1.9 mg/dL (0.6-1.3); POTASSIUM - SERUM 4.7 mmol/L (3.5-5.1)
--- NOTE | 2016-10-07 08:00 | NUR ---
PATIENT IS PLEASANTLY CONFUSED. STAND BY ASST TO BATHROOM. WALKES WITH WHEELED WALKER. GAIT IS VERY SLOW/UNBALACNED WITHOUT WALKER. BED AND CHAIR ALARM ON AT ALL TIMES. PATIENT IS IMPULSIVE AT TIMES.
[2016-10-07 08:15] VITALS: BP 184/77
--- NOTE | 2016-10-07 09:56 | NUR ---
DR. Priyanka PRINCE INTO SEE PATIENT NEW ORDERS RECEIVED.
--- NOTE | 2016-10-07 11:51 | NUR ---
PATIENT IN REHAB ROOM. WORKING WITH OCCUPATIONAL THERAPIST.
--- NOTE | 2016-10-07 19:35 | NUR ---
PT RESTING SUPINE PPOSITION IN BED, PT DENIES ANY NEEDS AT THIS TIME, PT RESPIRATIONS REGULAR AND UNLABORED.
--- NOTE | 2016-10-07 20:00 | NUR ---
PT INCONTINENT OF FECES, PT WASN'T ABLE TO MAKE TO TOILET FAST ENOUGH, PT WAS UPSET WITH SELF, PROVIDED ENCOURAGEMENT AND WASHED CLOTHES.
--- NOTE | 2016-10-08 01:44 | NUR ---
LYING IN BED WITH EYES OPEN AT THIS TIME. USES CALL LIGHT FOR ASSIST TO TOILET. ASSISTED TO TOILET WITH MINIMAL ASSIST. CLOTHES CHANGED AND GOWN PUT ON. DENIES ANY PAIN AT THIS TIME.
[2016-10-08 03:58] VITALS: BP 156/62
--- NOTE | 2016-10-08 04:47 | NUR ---
RESTING IN BED WITH EYES CLOSED. NO S/S OF DISTRESS OBSERVED. ALARMS IN PLACE AND FUNCTIONAL.
--- NOTE | 2016-10-08 09:10 | NUR ---
PT REQ AND REC'D PRN PAIN MEDICATION FOR NECK PAIN ALONG WITH AM MEDICATIONS. PT DENIES FURTHER NEEDS. WCTM.
--- NOTE | 2016-10-08 09:11 | NUR ---
Nutrition Monitoring and Eval: Pt is eating 79% meal avg on a regular diet. +BM 10/07/16. No new wt to assess. Meds and labs reviewed. Pt remains at low nutritional risk. Rec continue current diet. RD following.
--- NOTE | 2016-10-08 18:14 | NUR ---
PT SITTING UP EATING DINNER, DENIES NEEDS. WCTM.
--- NOTE | 2016-10-08 18:31 | NUR ---
RESTING QUIETLY IN BED. NO S/S DISTRESS. CALL LIGHT IN REACH
--- NOTE | 2016-10-08 19:30 | NUR ---
PT STATES SHE IS GOING HOME TOMORROW. PT EXPRESSES SOME MIXED FEELING REGARDING RATHER OR NOT SHE IS READY FOR DISCHARGE. PT STATES HER NECK STILL IS BOTHERING HER.
[2016-10-08 21:15] VITALS: BP 108/68
--- NOTE | 2016-10-09 04:10 | NUR ---
PT RESTING QUIETLY, RESPIRATIONS REGULAR AND UNLABORED. NO S/S OF ACUTE DISTRESS.
[2016-10-09 07:42] LABS: BASOPHILS 0.2 % (0-2); EOSINOPHILS 2.4 % (0-7); HEMATOCRIT 38.3 % (36.0-48.0); HEMOGLOBIN 12.1 g/dL (12-16); IMMATURE GRANULOCYTES 4.3 % (0-5); LYMPHOCYTES 19.3 % (15-50); MCH 29.1 pg (26.0-34.0); MCHC 31.6 g/dL (31.0-37.0); MCV 92.1 fL (80.0-100.0); MEAN PLATELET VOLUME 11.1 fL (7.4-10.4); MONOCYTES 14.2 % (2-11); NEUTROPHILS 59.6 % (40-80); PLATELET COUNT 209 10x3/uL (130-400); RBC 4.16 10x6/uL (4.00-5.40); RDW 14.3 % (11.5-14.5); WBC 8.7 10x3/uL (4.8-10.8)
[2016-10-09 08:00] LABS: CALCIUM 8.3 mg/dL (8.5-10.1); CARBON DIOXIDE 22.2 mmol/L (21.0-32.0); CREATININE - SERUM 1.7 mg/dL (0.6-1.3); POTASSIUM - SERUM 4.2 mmol/L (3.5-5.1)
--- NOTE | 2016-10-09 08:00 | NUR ---
PATIENT IS ALERT/WITH SOME CONFUSION. BED/CHAIR ALARM ON. CALL LIGHT WITHIN REACH. PLAN IS TO DISCHARGE PATIENT TO HOME TODAY. VOICES NO NEEDS AT THIS TIME.
--- NOTE | 2016-10-09 08:00 | NUR ---
SITTING UP EATING.CL IN REACH.PLAN FOR DC HOME TODAY.
[2016-10-09 08:53] VITALS: BP 104/53
--- NOTE | 2016-10-09 09:10 | NUR ---
DR. Priyanka PRINCE INTO SEE PATIENT. LORRAINE BARRAGAN RECEIVED. DISCHARGE ORDERS WRITTEN. PATIENT C/O OF NECK PAIN. PRN ULTRUM GIVEN
--- NOTE | 2016-10-09 09:23 | NUR ---
PATIENT DISCHARGING HOME, [facility] WILL FOLLOW WITH PATIENT, NO NEW DME NEEDED AT THIS TIME. DR. ROBLEDO 10/16/16 @ 9:30. PATIENT CHOICE FORM FOR HOME HEALTH AND [facility] FORM SIGNED, EXPLAINED AND FILED IN CHART.ORDERS HAVE BEEN FAXED WITH CONFORMATION RECIEVED.
--- NOTE | 2016-10-09 13:17 | NUR ---
DISCHARGE INSTRUCTIONS GONE OVER WITH PATIENT AND PATIENTS FRIEND. MEDICATIONS CALLED INTO [facility]. PATIENT HELPED OUT TO CAR BY STAFF.
== END 2016-10-09 13:20 | disposition home health service (06) | DRG 949 ==
LOC: D.REHAB 15:46
PROVIDERS: ADMIT Emergency Medicine
DX: S06.9X0D Unspecified intracranial injury without loss of consciousness, subsequent encounter (principal); N18.4 Chronic kidney disease, stage 4 (severe); N39.0 Urinary tract infection, site not specified; W19.XXXD Unspecified fall, subsequent encounter; I10 Essential (primary) hypertension; G72.89 Other specified myopathies; I12.9 Hypertensive chronic kidney disease with stage 1 through stage 4 chronic kidney disease, or unspecified chronic kidney disease; F03.90 Unspecified dementia, unspecified severity, without behavioral disturbance, psychotic disturbance, mood disturbance, and anxiety; E03.9 Hypothyroidism, unspecified; R53.1 Weakness; Z87.891 Personal history of nicotine dependence

== ENCOUNTER 2016-11-07 09:08 | Inpatient (IN) | payer MEDICARE, BC ==
[~2016-11-07] VITALS: Ht 167.6 cm; Wt 70.2 kg
[2016-11-07 10:20] LABS: BASOPHILS 0.2 % (0-2); EOSINOPHILS 0.2 % (0-7); HEMOGLOBIN 14.4 g/dL (12-16); IMMATURE GRANULOCYTES 1.2 % (0-5); LYMPHOCYTES 15.9 % (15-50); MCH 29.3 pg (26.0-34.0); MCV 91.5 fL (80.0-100.0); MEAN PLATELET VOLUME 11.9 fL (7.4-10.4); MONOCYTES 9.9 % (2-11); NEUTROPHILS 72.6 % (40-80); PLATELET COUNT 116 10x3/uL (130-400); RBC 4.92 10x6/uL (4.00-5.40); RDW 14.7 % (11.5-14.5); WBC 5.8 10x3/uL (4.8-10.8)
[2016-11-07 10:29] LABS: ALBUMIN 3.8 g/dL (3.4-5.0); ANION GAP 12.5 mmol/L (8-16); BILIRUBIN - TOTAL 0.57 mg/dL (0.2-1.3); CALCIUM 8.8 mg/dL (8.5-10.1); CARBON DIOXIDE 28.3 mmol/L (21.0-32.0); CREATININE - SERUM 1.9 mg/dL (0.6-1.3); POTASSIUM - SERUM 3.8 mmol/L (3.5-5.1)
[2016-11-07 11:09] LABS: APPEARANCE HAZY (CLEAR); BILIRUBIN NEGATIVE (NEGATIVE); COLOR YELLOW (YELLOW); GLUCOSE NEGATIVE (NEGATIVE); KETONE NEGATIVE (NEGATIVE); LEUKOCYTE ESTERASE TRACE (NEGATIVE); NITRITE NEGATIVE (NEGATIVE); PROTEIN 3+ mg/dL (NEGATIVE); SPECIFIC GRAVITY 1.015 (1.005-1.020); UROBILINOGEN NORMAL (NORMAL)
[2016-11-07 11:10] LABS: BACTERIA FEW /hpf (NONE SEEN); EPITHELIAL CELLS 0-5 /hpf (0-5); MUCUS <1+ /lpf (NONE SEEN); RED CELLS - URINE OCC /hpf (0-5); WHITE CELLS - URINE 0-5 /hpf (0-5)
[2016-11-07 13:29] VITALS: BP 195/74; BMI 25.0
[2016-11-07 13:35] VITALS: BP 195/74
--- NOTE | 2016-11-07 13:56 | NUR ---
CALLED DR BENSON OFFICE, SPOKE WITH JEFFERY AND EXPLAINED TO HER THAT THE PATIENT'S LIVING WILL SHOWED HER A DNR. SHE SAID THAT SHE WOULD ASK HIM TO PLEASE INCLUDE THIS IN HIS ORDERS FOR HER.
[2016-11-07] MEDS ORDERED: ARICEPT5 MG PO (13:59)
[2016-11-07] MEDS ORDERED: XARELTO15 MG PO (14:00)
--- NOTE | 2016-11-07 14:08 | NUR ---
REPORT RECEIVED FROM ER. BEFORE PT ARRIVE TO FLOOR, JEREMY CHAVEZ MET WITH ME AND STATED HE WAS THE POA. STATED THAT THE PT'S PHARMACY WAS [facility] [address]. ASK HIM IF HE HAD THE POA FOR AND HER LIVING WILL. HE LEFT AND CAME BACK WITH POA AND LIVING WILL WHICH SHE IS A DNR. PLACED IN CHART. NOTIFIED. PT ARRIVED VIA W/C.ABLE TO AMBULATE X1 STAFF ASSISTANCE FROM W/C TO BED WITH A STEADY GAIT. NO SKIN BREAKDOWN NOTED. PT ALERTX3 DISORIENTED TO TIME ONLY BUT WHENEVER ASKED WHAT YEAR IT WAS, SHE STATED IT WAS 1924. REOIRIENT TO TIME WHEN PT STATED "WHO GIVES A FUCK WHAT YEAR IT IS" HAS A PIV TO HER LEFT HAND SL. WHEN TRYING TO FLUSH, PT C/O PAIN. PT WAS ABLE TO ANSWER MOST OF THE QUESTIONS HER SELF BUT POA WAS THERE TO VERIFY ACCURACY. 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 SEE FLOW SHEET FOR REMAINING OF ASSESSMENT.
[2016-11-07] MEDS ORDERED: FUROSEMIDE20 MG (14:23)
[2016-11-07] MEDS ORDERED: FUROSEMIDE20 MG PO (14:24)
--- NOTE | 2016-11-07 14:48 | NUR ---
IV ATTEMPTED X2 WITH NO SUCCESS. RIGHT AC AND LEFT WRIST ATTEMPTED. ANOTHER RN NOTIFIED.
--- NOTE | 2016-11-07 15:01 | NUR ---
PATIENT TO COMPLAIN OF PAIN TO LEFT SALINE LOCK WITH FLUSHING. REMOVED WITH CATH TIP INTACT. RE-SITED TO LEFT AC WITH 22G X 1 STICK. TOLERATED WELL.
--- NOTE | 2016-11-07 15:53 | NUR ---
PT RESTING IN BED WITH EYES CLOSED WITH 0 S/SX OF DISTRESS. BREATHING NORMAL AND UNLABORED. CALL LIGHT IN REACH. WILL CONT POC.
[2016-11-07 16:00] VITALS: BP 136/53
--- NOTE | 2016-11-07 18:46 | NUR ---
PT STATED THAT SHE HAS PROBLEMS WITH HER MEMORY. "ITS SOMETIMES EMBARRISING BUT ITS TRUE." PT IN BED WATCHING TV WITH 0 SS/X OF DISTRESS/DISCOMFORT NOTED. BREATHING NORMAL AND UNLABORED. BED ALARM ON AND FUNCTIONAL. CALL LIGHT IN REACH. WILL CONT POC.
[2016-11-07 19:00] VITALS: BP 166/60
--- NOTE | 2016-11-07 19:37 | NUR ---
PT IN BED. SURROUNDED BY FAMILY MEMBERS AT BEDSIDE DENIES NEEDS AT THIS TIME WILL CONITNUE TO MONITOR
[2016-11-08] VITALS: BP 137/65
--- NOTE | 2016-11-08 00:37 | NUR ---
RIGGING SLINGER AT BEDSIDE TO OBTAIN VITALS, CALL LIGHT IN REACH. WILL CONTINUE WITH PLAN OF CARE.
[2016-11-08 04:00] VITALS: BP 129/62
--- NOTE | 2016-11-08 07:44 | NUR ---
AM ROUNDING DONE WITH BED ALARM SET IN USE. PATIENT IS DNR CODE STATUS. ON ROOM AIR. ON HEART MONITOR SHOWING SB, HR 59. SALINE LOCK SEEN TO LEFT AC. WILL CPOC.
[2016-11-08 08:00] VITALS: BP 157/65
--- NOTE | 2016-11-08 09:45 | NUR ---
CALLED PHARMACY FOR ZIAC DOSE THAT WAS DUE AT 0900. AWAITING MEDICATION SO IT CAN BE GIVEN.
--- NOTE | 2016-11-08 10:24 | CN ---
PATIENT NAME:RAUL ROMANO MEDICAL RECORD: [id number] : [birth year] LOCATION:D. D.2130 ADMIT DATE: 11/07/16 ACCOUNT: [id number] CONSULTING PHYSICIAN: SITA CHERY MD REFERRING PHYSICIAN: ZAKIYA ROBLEDO MD DATE OF CONSULTATION: 11/07/2016 HISTORY OF PRESENT ILLNESS: An 89-year-old female with a history of hypertension, dementia, status post recent stay in rehab last month after a fall at home and was discharged home. Then, after inpatient rehabilitation study, she report she is feeling bad, difficult to get any history. The patient is a very poor historian with history of dementia and has a history of DVT and hypertension as well, noted to have markedly elevated BNP. We are asked to see her concerning her cardiovascular status. PAST MEDICAL HISTORY: 1. History of hypertension. 2. Dementia. 3. DVT. 4. Hypothyroidism, on replacement. ALLERGIES: None known. SOCIAL HISTORY: Apparently, she was at home with home health after rehabilitation. This is an old chart and not necessarily reliable on the patient's history. REVIEW OF SYSTEMS: Unobtainable due to the patient factors. MEDICATIONS: According to [facility] and discharge from rehab include Aricept 5 mg at bedtime., Xarelto 15 mg daily, bisoprolol/HCT2.5/6.25 mg daily, Restoril 30 mg bedtime, tramadol 50 q.6 hours p.r.n., Lasix 20 mg daily and Synthroid 100 mcg daily. PHYSICAL EXAMINATION: GENERAL: Pleasant female, appears stated age. No acute distress. VITAL SIGNS: Blood pressure 195/74, pulse 65 and regular. HEENT: Normocephalic and atraumatic. NECK: No JVD or bruit. HEART: Regular II/ systolic ejection murmur. LUNGS: Good air excursion. ABDOMEN: Soft and nontender. EXTREMITIES: Pulse 2+. No edema. IMPRESSION: Chronic renal insufficiency, hypertension, dementia, elevated BNP. We will check echocardiographic study, currently appears to be euvolemic. Further recommendations based on clinical course. Thank you for the consultation. TRANSINT:[id number] Voice Confirmation ID: [id number] DOCUMENT ID: [id number] CONSULT REPORT [id number] RAUL ROMANO SITA CHERY MD at 1024 CC: [id number] DICTATION DATE: 11/07/16 1601 KNITTING INSPECTOR: 11/07/162004 ADM IN [facility] [address] [id number]
[2016-11-08 14:20] VITALS: Ht 167.6 cm; Wt 70.2 kg
--- NOTE | 2016-11-08 14:43 | NUR ---
BED ALARM IS GOING OFF. PATIENT IS CLIMBING OUT OF THE BED TO GET TO THE RESTROOM. HAS DIARREHA. CLEANED UP FROM THIS AND ASSISTED BACK TO BED. BED ALARM IS RE-SET.
[2016-11-08 16:00] VITALS: BP 143/63
--- NOTE | 2016-11-08 17:54 | NUR ---
PATIENT IS ALERT AND USED HER CALL LIGHT FOR ASSIST TO THE RESTROOM. BED ALARM STILL IN USE.
--- NOTE | 2016-11-08 19:20 | NUR ---
PT IN BED. DENIES NEEDS AT THIS TIME. WILL CONTINUE TO MONITOR.
[2016-11-08 20:00] VITALS: BP 160/67
[2016-11-09 04:00] VITALS: BP 174/80
[2016-11-09 06:10] LABS: BASOPHILS 0.2 % (0-2); EOSINOPHILS 1.6 % (0-7); HEMATOCRIT 40.8 % (36.0-48.0); HEMOGLOBIN 13.2 g/dL (12-16); IMMATURE GRANULOCYTES 4.2 % (0-5); LYMPHOCYTES 18.6 % (15-50); MCH 29.2 pg (26.0-34.0); MCHC 32.4 g/dL (31.0-37.0); MCV 90.3 fL (80.0-100.0); MEAN PLATELET VOLUME 12.1 fL (7.4-10.4); MONOCYTES 23.2 % (2-11); NEUTROPHILS 52.2 % (40-80); PLATELET COUNT 102 10x3/uL (130-400); RBC 4.52 10x6/uL (4.00-5.40); RDW 14.7 % (11.5-14.5); WBC 9.3 10x3/uL (4.8-10.8)
[2016-11-09 06:31] LABS: ANION GAP 10.9 mmol/L (8-16); CALCIUM 7.8 mg/dL (8.5-10.1); CARBON DIOXIDE 29.5 mmol/L (21.0-32.0); CREATININE - SERUM 2.2 mg/dL (0.6-1.3); POTASSIUM - SERUM 3.4 mmol/L (3.5-5.1)
--- NOTE | 2016-11-09 07:10 | NUR ---
RECEIVED REPORT. ASSUMED CARE OF PATIENT. CALL LIGHT WITHIN REACH. RESTING IN BED WITH EYES OPEN. ORIENTED TO NAME ONLY. BED ALARM PATENT. DENIES NEEDS. NO DISTRESS.
[2016-11-09 08:00] VITALS: BP 144/66
[2016-11-09 12:00] VITALS: BP 135/61
--- NOTE | 2016-11-09 13:12 | NUR ---
ASSISTED PATIENT TO RESTROOM AND BACK TO BED. NO DISTRESS. AMBULATES WELL WITH ASSIST.
--- NOTE | 2016-11-09 15:35 | NUR ---
1445 22 GAUGE IV REMOVED FROM LEFT AC. CATHETER TIP INTACT. PRESSURE HELD. NO BLEEDING FROM SITE. 2X2 GAUZE APPLIED AND SECURED WITH TAPE. 1450 TELEMETRY REMOVED AND DISCHARGE INSTRUCTIONS PROVIDED TO PATIENT. DUE TO CONFUSION, WILL PROVIDED DISCHARGE INSTRUCTIONS TO [place] ALSO. 1500 PATIENT ASSISTED IN DRESSING IN HOSPITAL SCRUBS PATIENT HAS NO PERSONAL CLOTHING ITEMS HERE. 1515 AIDA CHAVEZ HERE TO PICK PATIENT UP. DISHCARGE INSTRUCTIONS PROVIDED TO JEREMY AT THIS TIME. HE HAD NO QUESTIONS FOR THIS REGISTERED PRIVATE DUTY NURSE. 1530 PATIENT LEFT UNIT VIA WHEELCHAIR WITH ALL BELONGING. PATIENT DISCHARGED TO HOME VIA PRIVATE CAR WITH JEREMY LESLIE. PATIENT IN NO DISTRESS UPON LEAVING UNIT.
--- NOTE | 2016-11-09 15:39 | NUR ---
LATE ENTRY- 1000 DR ROBLEDO SPOKE WITH THE CM THIS AM REGARDING PATIENT AND DISCHARGE STATUS. HE IS CONCERNED THAT SHE IS VERY CONFUSED AND LIVES ALONE. PATIENT WAS DISCHARGED FROM [facility] APPROXIMATELY 1 MONTH AGO. [facility] WAS ASSIGNED FOR HOME HEALTH SERVICES. TC TO [facility] X2. SPOKE WITH THE ON-CALL NURSE, RAUL. THE CASE IS CURRENT. NO CONCERNS VOICED. THEY WILL RESUME CARE. SHE SPOKE WITH HER MANAGING BROKER. THE PATIENTS CARE WILL RESUME ON FRIDAY. CM FAXED INITIAL CLINICAL/ REFERRAL INFORMATION. 1532- PER THE PRIMARY NURSE, NIRAJ, SHE WILL GIVE THE POA D/C INSTRUCTIONS. HIS POA PAPERWORK IS ON THE CHART. HE IS PROVIDING TRANSPORTATION TO HOME. JEREMY CHAVEZ - A- [phone]. [facility] [address] IS PATIENT'S PHARMACY. PATIENT INDEPENDENT IN CARE. HAS 2 STEPS TO ENTER HER HOME. HAS CANE AND WALKER. NO ADDITIONAL DME. PCP- DR ROBLEDO
--- NOTE | 2016-11-12 15:47 | EC ---
PATIENT:RAUL ROMANO DATE OF SERVICE: 11/07/16 SEX: F MEDICAL RECORD: [id number] DATE OF : [birth year] LOCATION:D.M2 D.213 AGE OF PATIENT: 89 ADMISSION DATE: 11/07/16 REFERRING PHYSICIAN: INTERPRETING PHYSICIAN: ILANA JACINTO MD ECHOCARDIOGRAM REPORT ECHO CHARGES 4 ECHO COMPLETE CLINICAL DIAGNOSIS: NEW ONSET OF CHF HX OF HTN ECHOCARDIOGRAPHIC MEASUREMENTS (adult normal given) AC root (d.<3.7cm) 3.4 cm LV Septum d (<1.2 cm> 1.2 cm Valve Excursion 1.5 cm LV Septum (systole) 1.4 cm Left Atria (s.<4.0cm> 4.1 cm LVPW d(<1.2cm) 1.6 cm RV (d.<2.3cm) 3.0 cm LVPW (sytole) 1.7 cm LV diastole(<5.6CM) 5.1 cm MV E-F(>70mm/sec) cm LV systole 3.2 cm LVOT Diameter 2.2 cm MV exc.(>10mm) 1.2 cm Est.ejection fraction (50-75%) % Pericardial Effusion N DOPPLER: LVIT cm/sec A 105 cm/sec E 111 cm/sec LA cm/sec RVSP 31 mmHg LVOT 102 cm/sec AOP1/2T 394 m/s Asc. Ao 156 cm/sec RVOT cm/sec RA cm/sec PA cm/sec AV Gradient Peak 9.73 mmHg AV Mean 4.80 mmHg AV Area 2.1 cm MV Gradient Peak 6.19 mmHg MV Mean 3.0 mmHg MV Area cm COMMENTS: Hydraulic Hammer Operator: 2 BETTY ARTIS Appeals Nurse: 4 Dr. Jacinto TAPE# PACS DATE OF SERVICE: 11/07/2016 PROCEDURE: Echocardiographic imaging. FINDINGS: The overall quality is difficult to see; however. 1. Left ventricle is shown to have mild left ventricular hypertrophy. Inflow pattern is consistent with diastolic dysfunction. The overall ejection fraction is preserved and there are no appreciated regional wall motion abnormalities. ECHOCARDIOGRAM REPORT [id number] RAUL ROMANO 2. The mitral valve is shown to be structurally normal with mid moderate mitral regurgitation. 3. The left atrium appears to have normal structure and normal size. 4. The aortic valve is difficult to visualize, but by Doppler examination, appears to have normal function with trace to mild aortic regurgitation. 5. The pulmonic valve is not well visualized and there is mild pulmonic insufficiency. 6. The RV, normal size, normal function. 7. Tricuspid valve, normal structurally. There is no evidence of elevations in her right ventricular systolic pressures. 8. The pericardium is normal. 9. The inferior vena cava was not visualized. CONCLUSIONS: The patient has a normal structural heart. There is mild left ventricular hypertrophy with preserved LV systolic function with an ejection fraction of 60%. There is evidence of diastolic dysfunction and trace aortic insufficiency. TRANSINT:[id number] Voice Confirmation ID: [id number] DOCUMENT ID: [id number] ILANA JACINTO MD at 1547 CC: [id number] DICTATION DATE: 11/07/16 1453 POWER TRANSFORMER ASSEMBLER: 11/07/16 1827 DIS IN 11/09/16 [address] [place] [address]
== END 2016-11-09 15:40 | disposition home health service (06) | DRG 291 ==
LOC: D.ER 09:08 → D.M2 11:25
PROVIDERS: Emergency Medicine; ADMIT Family Medicine
DX: I13.0 Hypertensive heart and chronic kidney disease with heart failure and stage 1 through stage 4 chronic kidney disease, or unspecified chronic kidney disease (principal); I50.33 Acute on chronic diastolic (congestive) heart failure; N18.4 Chronic kidney disease, stage 4 (severe); Z86.718 Personal history of other venous thrombosis and embolism; E03.9 Hypothyroidism, unspecified; G30.9 Alzheimer's disease, unspecified; F02.80 Dementia in other diseases classified elsewhere, unspecified severity, without behavioral disturbance, psychotic disturbance, mood disturbance, and anxiety; F41.9 Anxiety disorder, unspecified

== ENCOUNTER 2016-12-06 17:19 | Inpatient (IN) | payer MEDICARE, BC ==
[~2016-12-06] VITALS: Ht 167.6 cm; Wt 66.9 kg
[~2016-12-06 17:19] MED LIST changes: +ARICEPT5 MG PO; +FUROSEMIDE20 MG; +FUROSEMIDE20 MG PO
[2016-12-06 22:45] VITALS: Ht 167.6 cm; Wt 66.9 kg
[2016-12-11 08:52] VITALS: BP 175/74
== END 2016-12-11 14:30 | DRG 690 ==
LOC: D.ER 17:19 → D.M2 21:22
PROVIDERS: ADMIT Family Medicine
DX: N39.0 Urinary tract infection, site not specified (principal); N18.4 Chronic kidney disease, stage 4 (severe); R53.1 Weakness; I12.9 Hypertensive chronic kidney disease with stage 1 through stage 4 chronic kidney disease, or unspecified chronic kidney disease; E03.9 Hypothyroidism, unspecified; G30.9 Alzheimer's disease, unspecified; F02.80 Dementia in other diseases classified elsewhere, unspecified severity, without behavioral disturbance, psychotic disturbance, mood disturbance, and anxiety; E86.0 Dehydration; Z86.718 Personal history of other venous thrombosis and embolism